=== PATIENT | male | born 1955 | race Caucasian/White ===

== ENCOUNTER 2020-04-24 12:52 | Outpatient (RCR) | payer OTHER, SELFPAY ==
[2016-07-17 15:41] VITALS: BMI 27.6
[2020-04-24] MEDS: COVID-19 VACC, MRNA(PFIZER)/PF 30 MCG/0.3 ML SYRINGE IM (17:52)
[2020-05-15] MEDS: COVID-19 VACC, MRNA(PFIZER)/PF 30 MCG/0.3 ML SYRINGE IM (17:27)
== END 2020-07-21 23:59 ==
LOC: IMMUN 12:52
PROVIDERS: PCP Family Medicine; Visit Provider Family Medicine
DX: Z23 Encounter for immunization (principal)
CPT/HCPCS: 0001A; 0002A; 91300

== ENCOUNTER → 2024-08-29 | Outpatient (CLI) | payer BC, SELFPAY ==
[2024-08-29 16:10] LABS: Mucous, Urine 0 SEEN /hpf (<or=2+); Red Blood Cells-Urine 0 SEEN /hpf (0-5); Squamous Epithelial Cells - UA 0 SEEN /hpf (0-5)
[2024-08-29 18:13] LABS: Hematocrit 46.1 % (40-54); Hemoglobin 16.0 g/dL (13.0-16.5); Immature Granulocytes Count 0.030 X10^3/uL (0.0-0.0); Mean Corp Hgb Conc 34.7 g/dL (32-36); Mean Corpuscular Volume 89.3 fL (80-94); Mean Platelet Vol. 11.1 fl (6.2-12.0); NRBC Flagged by Analyzer 0 % (0-5); Platelet Count 198 K/mm3 (150-450); RBC Distribution Width CV 12.6 % (11.6-14.6); RBC Distribution Width SD 41.4 fl (35.1-43.9); Red Blood Count 5.16 M/mm3 (4.6-6.2); White Blood Count 6.6 K/mm3 (4.4-11.0)
[2024-08-29 18:21] LABS: Color, Urine Yellow (Yellow); Glucose, Dipstick Normal (Normal); Ketone-Dipstick Negative (Negative); Leukocyte Esterase-Dipstick Negative /ul (Negative); Nitrite-Dipstick Negative (Negative); Occult Blood-Urine Negative /ul (Negative); Protein-Dipstick 30 mg/dl (Negative); Specific Gravity, Urine 1.020 (1.002-1.030); Urine Bilirubin Dipstick Negative (Negative)
[2024-08-29 18:59] LABS: AST(SGOT) 24 U/L (<=37); Alanine Aminotransfer ALT/SGPT 32 U/L (<=46); Albumin, Serum 4.5 g/dL (3.4-4.8); Alkaline Phosphatase 73 U/L (40-129); Anion Gap 11 (5-15); BUN 22 mg/dL (4-19); BUN/Creat Ratio 24.7 RATIO (10-20); Calcium,Total 9.5 mg/dL (7.6-11.0); Carbon Dioxide 23.2 mmol/L (21.0-32.0); Chloride 106 mmol/L (98-108); Cholesterol 205 mg/dL (<=200); Globulin 2.5 g/dL (2.2-4.2); Glucose 102 mg/dL (70-99); Low Density Lipoprotein Calc. 99 mg/dL; Magnesium 2.1 mg/dL (1.5-2.2); PSA,Total - Annual Screen 0.39 ng/mL (0.02-4.00); Potassium 4.5 mmol/L (3.3-5.1); Triglycerides 339 mg/dL; Very Low Density Lipoprotein 68 mg/dL (5-40); cholesterol:hdl ratio screen 5.31
== END | disposition home or self-care (01) ==
LOC: MFPLAB 15:53
PROVIDERS: PCP Family Medicine; Referring Provider Family Medicine; Visit Provider Family Medicine
DX: Z00.00 Encounter for general adult medical examination without abnormal findings (principal); Z12.5 Encounter for screening for malignant neoplasm of prostate; R03.0 Elevated blood-pressure reading, without diagnosis of hypertension
CPT/HCPCS: 36415; 80053; 80061; 81001; 83036; 83735; 84153; 84443; 85025; G0103

== ENCOUNTER → 2024-11-12 | Outpatient (CLI) | payer BC, SELFPAY ==
--- NOTE | 2024-11-12 14:00 | ECHOD_ITS ---
Reason For Study Reason For Study: MURMUR Procedure This was a 2D Doppler, Color Flow transthoracic echocardiogram. Myocardial strain analysis was performed in this exam to aid in the assessment of cardiac function. Exam performed in department. Left Ventricle Normal LV size. The global longitudinal strain = -18.2 % (normal). The left ventricular ejection fraction is 60 %. No regional wall motion abnormalities noted. Right Ventricle Normal RV size. Normal systolic function. Atria Normal left atrium. Normal right atrium. Mitral Valve Normal mitral valve. Tricuspid Valve Normal tricuspid valve. Aortic Valve Trisinus/trileaflet aortic valve. Moderate focal aortic valve calcification. Peak aortic valve gradient 22 mmHg. Mean aortic valve gradient 12 mmHg. Mild (1+) aortic valve insufficiency. Pulmonic Valve Normal pulmonic valve. Great Vessels Normal aortic root. The pulmonary artery is normal size. Inferior vena cava collapse with respiration. Pericardium/Pleural No pericardial effusion. MMode/2D Measurements & Calculations LVIDd: 4.5 cm IVSd: 1.2 cm LVOT diam: 2.2 cm LVIDs: 2.6 cm LVPWd: 0.96 cm LVOT area: 3.9 cm2 RVDd: 4.1 cm FS: 42.4 % asc Aorta Diam: 3.6 cm LAV(MOD-bp): 45.5 ml LVAd ap4: 32.2 cm2 LAV(MOD-bp) Indexed: 21.6 ml/m2 LVLd ap4: 8.8 cm LAV(MOD-sp2): 52.4 ml EDV(MOD-sp4): 96.8 ml LAV(MOD-sp4): 37.7 ml EDV(sp4-el): 99.9 ml LVAs ap4: 17.6 cm2 LVLs ap4: 7.9 cm ESV(MOD-sp4): 35.4 ml ESV(sp4-el): 33.4 ml EF(MOD-sp4): 63.4 % EF(sp4-el): 66.6 % LVAd ap2: 32.2 cm2 SV(MOD-sp4): 61.4 ml SV(MOD-sp2): 56.7 ml LVLd ap2: 8.8 cm SI(MOD-sp4): 29.1 ml/m2 SI(MOD-sp2): 26.9 ml/m2 EDV(MOD-sp2): 94.8 ml EDV(sp2-el): 100.1 ml LVAs ap2: 18.2 cm2 LVLs ap2: 7.4 cm ESV(MOD-sp2): 38.2 ml ESV(sp2-el): 38.1 ml EF(MOD-sp2): 59.8 % SV(sp4-el): 66.5 ml Ao sinus diam: 3.[address] Junction: 2.9 cm LA dimension(2D): 3.8 cm LA A4 area: 16.1 cm2 RA A4 area: 12.1 cm2 TAPSE: 2.2 cm Time Measurements MV dec time: 0.21 sec Doppler Measurements & Calculations MV E max anjel: 71.5 cm/sec Lat Peak E' Anjel: 7.7 cm/sec Med Peak E' Anjel: 6.6 cm/sec MV A max anjel: 64.3 cm/sec E/E' lat: 9.3 E/E' med: 10.8 MV E/A: 1.1 MV dec slope: 333.8 cm/sec2 Ao V2 max: 234.3 cm/sec AI max anjel: 463.2 cm/sec Ao max P.1 mmHg AI max P.9 mmHg Ao V2 mean: 167.5 cm/sec AI dec slope: 195.5 cm/sec2 Ao mean P.2 mmHg AI P1/2t: 693.9 msec Ao V2 VTI: 46.0 cm AV (velocity ratio): 0.53 STEPHANIE(I,D): 2.1 cm2 STEPHANIE(V,D): 1.9 cm2 LV V1 max: 111.2 cm/sec SV(LVOT): 95.1 ml PA V2 max: 108.3 cm/sec LV V1 max P.9 mmHg LV V1 mean P.8 mmHg LV V1 mean: 78.1 cm/sec LV V1 VTI: 24.3 cm ECHO/Echo Complete Interpretation Summary Normal LV size. The global longitudinal strain = -18.2 % (normal). The left ventricular ejection fraction is 60 %. Mean aortic valve gradient 12 mmHg. Mild (1+) aortic valve insufficiency. Moderate focal aortic valve calcification. Peak aortic valve gradient 22 mmHg. Ordering Physician: Arjun Gutierrez Referring Physician: Arjun Gutierrez Performed By: Breanna Cantu RDCS
== END | disposition home or self-care (01) ==
LOC: CVS 13:58
PROVIDERS: PCP Family Medicine; Referring Provider Family Medicine; Visit Provider Family Medicine
DX: R01.1 Cardiac murmur, unspecified (principal)
CPT/HCPCS: 93306